=== PATIENT | male | born 1940 | race Caucasian/White ===

== ENCOUNTER 2017-01-12 01:51 | Day surgery (SDC) | payer MEDICARE ==
[~2017-01-12] VITALS: Ht 180.3 cm; Wt 70.5 kg
[2017-01-12] VITALS (14 sets, daily range): BP systolic 117–155; BP diastolic 72–118; PULSE 56–69; RESP 14–20; O2SAT 96–99
[~2017-01-12 01:51] MED LIST: ASCO100089 PO; CHOL200025 PO; MULT-1018 PO; PRIM50TA PO; PROP80CA2 PO; SILD20TA14 PO; WARF6TAB6 PO
[2017-01-12] MEDS ORDERED: Propofol 10,000 mCg/mL 20 mL Inj ONE (01:52)
[2017-01-12] MEDS ORDERED: Benzoc-Butamben-Tetraca Spray 20 Gm Spray TOPICAL ONE (06:00)
--- NOTE | 2017-01-12 06:00 | NUR ---
ADMISSION NOTE MALE PT ADMITTED FOR PACEMAKER. DISCUSSED PLAN OF CARE WITH PT AND . SEE ADMIT AND FLOW SHEET
[2017-01-12] MEDS ORDERED: CeFAZolin Inj 2 GM in IV Premix 1 EACH IV ONE (06:05)
[2017-01-12] MEDS ORDERED: 0.9% Sodium Chloride 1,000 ML IV SCH ×2 (06:05→09:28)
[2017-01-12 06:31] LABS: BASOPHILS % (AUTO) 0.9 % (0-3); EOSINOPHILS % (AUTO) 10.2 % (0-5); MONOCYTES % (AUTO) 20.1 % (4-12); NEUTROPHILS % (AUTO) 47.8 % (40-74); Platelet Count 177 bil/L (150-400)
[2017-01-12] MEDS ORDERED: WARF3TAB7 PO (06:53)
[2017-01-12 07:06] LABS: INR 2.87 ratio
[2017-01-12] MEDS ORDERED: Bupivacaine-MPF 0.5% 30 mL Inj ONE (07:33)
[2017-01-12] MEDS ORDERED: Heparin 5,000 Units/500 mL NS Premix IV ONE (07:33)
[2017-01-12] MEDS ORDERED: 0.9% Sodium Chloride 250 ML ONE ×2 (07:33→17:16)
[2017-01-12] MEDS ORDERED: fentaNYL-PF 50 mCg/mL 2 mL Inj ONE (07:59)
[2017-01-12] MEDS ORDERED: Ondansetron 2 mg/mL 2 mL Inj IVPUSH PRN (09:30)
[2017-01-12] MEDS ORDERED: HYDROcodone-APAP 5-325 mg Tablet PO PRN (09:30)
--- NOTE | 2017-01-12 10:07 | DRSVH ---
PROCEDURE: X-RAY CHEST ONE VIEW, PORTABLE ([id number]) INDICATIONS: For new leads placed TECHNIQUE: One view of the chest was acquired. COMPARISON: [facility], , CHEST 2VW, 07/18/2012, 10:35. FINDINGS: Surgical changes and devices: Dual chamber cardiac pacer present. Lungs and pleura: No pleural effusions or pneumothorax. Lungs are clear. Mediastinum: Mediastinal contours appear normal. Heart size is normal. Bones and chest wall: No suspicious bony lesions. Overlying soft tissues appear unremarkable. IMPRESSION: No immediate complications status post cardiac pacemaker placement. Dictated by: Long Boudreaux Lynette Interpreted: Nayla Rico MD on 01/12/2017 at 10:07 Transcribed by: CINDY on 01/12/2017 at 10:07 Approved by: Nayla Rico M.D. on 01/12/2017 at 17:26
--- NOTE | 2017-01-12 10:31 | OP ---
[address] [address] OPERATIVE REPORT PATIENT: ETHAN DUNCAN : 1940 MR#: [id number] ADMIT: 01/12/2017 JOB ID: [id number] DATE OF SURGERY: 01/12/2017 PREOPERATIVE DIAGNOSIS(ES): Sick sinus syndrome. POSTOPERATIVE DIAGNOSIS(ES): Sick sinus syndrome. PROCEDURES PERFORMED: 1. Dual-chamber pacemaker implantation. 2. Fluoroscopy. SURGEON: Tavon Osborne MD, electrophysiology attending. SENIOR MERCHANDISER: Marco Sharma. IMPLANTED DEVICES: 1. [employer] pulse generator model CC5741, serial #[id number]. 2. Right atrial lead [employer] [id number], 52 cm, serial #[id number]. 3. RV lead [employer] [id number], 58 cm, serial #[id number]. ANESTHESIA: Bolus dosing of Versed and fentanyl were utilized for appropriate level of sedation. INDICATION: The patient is a pleasant 76-year-old man with a structurally normal heart, sick sinus syndrome and atrial fibrillation. After discussion of risks and benefits of pacemaker implantation, he opted to proceed. PROCEDURAL DESCRIPTION: Following informed signed consent, the patient was taken to the EP laboratory in a fasting, nonsedated state, where he was prepped and draped in the usual sterile fashion. The left infraclavicular region was infiltrated with 40 cc of a 50/50 mixture of bupivacaine and lidocaine. Once adequate anesthesia had been achieved, a 3 cm transverse incision was performed 2 cm below the clavicle. Dissection was carried to the pectoralis fascia. A pocket was then fashioned using combination of electrocautery and blunt dissection. Once adequate hemostasis had been achieved, access to the left axillary vein was gotten with a micropuncture needle twice to deploy two 0.035 3-mm J guidewires. Over the first of these, an 8-Zambian tear-away sheath was advanced. Once the guidewire was removed, an active fixation lead was advanced to the RV outflow tract, ultimately the RV apex. The lead was affixed in position using associated fixation screw. It was connected to the external analyzer and demonstrated appropriately sensed R waves, impedance, capture threshold. It was checked to 10 V, and there was no evidence of diaphragmatic stimulation. Attention was now paid to the right atrial lead. Over the other previously deployed J guidewire, another 8-Zambian tear-away sheath was advanced. Once the guidewire was removed, an active fixation lead was advanced to the right atrial appendage. It was affixed in position using its associated active fixation screw. The lead was connected to the external analyzer and demonstrated appropriately sensed fibrillation waves, and no diaphragmatic stimulation at 10 V of asynchronous pacing. Impedance was stable. Once the position and redundancy of both leads was confirmed in multiple fluoroscopic views, the leads were anchored to the prepectoralis fascia using associated anchoring sleeve and 2-0 Ethibond sutures. The pocket was copiously with antibiotic solution. The leads were connected to a generator. The generator was placed in the pocket. It was affixed to the floor of the pocket using 1-0 Ti-Cron suture. The incision was then closed with running layers of absorbable suture. The wound was dressed with skin adhesive and a small dressing. At the end of the procedure, needle, sponge and instrument counts were all correct. COMPLICATIONS: None. ESTIMATED BLOOD LOSS: Negligible. DEVICE MEASURED DATA: 1. Right atrial lead: 0.7 mV, AFib waves, 490 ohms. 2. RV lead: Greater than 12 mV, 600 ohms, 0.5 V at 0.4 msec. FINAL PROGRAM PARAMETERS: DDDR 55-130 beats per minute with mode switched to DDI at 50 beats per minute. IMPRESSION: Successful dual-chamber pacemaker implantation. PLAN: 1. Stat portable chest x-ray. 2. PA and lateral chest x-ray in morning. 3. Device interrogation in the morning. 4. IV Ancef through tomorrow. 5. Keflex x7 days. 6. Pacemaker check in one week. 7. Cardioversion with preceding ARSEN, given subtherapeutic INR within the past three weeks. ATTENDING STATEMENT: Tavon Osborne MD, electrophysiology attending, was present for and supervised/performed all aspects of this procedure.
--- NOTE | 2017-01-12 11:30 | NUR ---
TRANSFERED TO [facility] [place]. REPORT GIVEN
--- NOTE | 2017-01-12 13:37 | NUR ---
Arrival to [facility] Pt arrived to 3029 just after 12 noon. Transferred to bed independently. L arm sling applied by [facility] staff. L chest dressing CDI. Tele monitor placed on pt. Pt ate lunch. Currently resting comfortably in bed, voices no complaints.
[2017-01-12] MEDS ORDERED: CeFAZolin Inj 1 GM in IV Premix 1 EACH IV SCH (16:30)
[2017-01-12] MEDS: CeFAZolin Inj 1 GM in IV Premix 1 EACH IV SCH (17:30)
[2017-01-12] MEDS: Sodium Chloride LOK Flush 10 mL Syringe IVFLUSH SCH (17:30)
--- NOTE | 2017-01-12 18:25 | NUR ---
Ambulation Pt. ambulated in the hallway x1. He walked 400 feet. NO C/O SOB, dizziness, or weakness during activity. L. chest dressing clean and dry, with one small old blood shadow (unchanged). Arm sling was used to support L. arm and to protect pacemaker site.
[2017-01-13] VITALS (13 sets, daily range): BP systolic 103–165; BP diastolic 68–93; PULSE 55–83; RESP 12–19; O2SAT 98–99
[2017-01-13] MEDS: Sodium Chloride LOK Flush 10 mL Syringe IVFLUSH SCH ×2 (00:42→09:39)
[2017-01-13] MEDS: CeFAZolin Inj 1 GM in IV Premix 1 EACH IV SCH (00:43)
--- NOTE | 2017-01-13 05:12 | NUR ---
Activity Pt up independent in room. Pt has left arm sling in place. Pt's dressing to left upper chest is intact with small amount of dried blood, no change. Pt is NPO after midnight. Call light within reach, frequent rounding.
--- NOTE | 2017-01-13 09:21 | NUR ---
Social Work-initial assessment/ discharge: Data:See initial assessment. P tis a 76 y/o male who was admitted for tachy per H&P. Pt's insurance is [employer] and PCP is Ezio Cox MD. EMR reviewed. SW met with pt at bedside to discuss discharge planning, SW role explained. Pt is alert and oriented x3. Pt resides at home with his on [address] where he remains independent with ADLs. Pt drives and does not use any DME. Pt has no HH or SNF history. 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 SW discussed DPOA/ advanced directive, pt confirms he has completed this, SW encouraged a copy to be brought into the hospital. Pt has been up independent in the hallways. Pt's to provide transport home at discharge. Pt anticipated to discharge home today. SW provided phone number and plan on white board in room. No anticipated discharge needs. SW will continue to follow if needs arise. Assessment:Pt who is independent at baseline. Plan:Pt to discharge home today via POV. No anticipated discharge needs. SW will continue to follow if needs arise. KINGS Gaffney Addendum: 01/13/17 at 0925 by ALIS WALTERS Amended: Links added.
[2017-01-13] MEDS: Propranolol LA 80 mg ER24 Capsule PO SCH ×2 (09:50→10:37)
--- NOTE | 2017-01-13 11:00 | DRSVH ---
PROCEDURE: X-RAY CHEST, TWO VIEWS ([id number]) INDICATIONS: For new lead placement TECHNIQUE: 2 views of the chest were acquired. COMPARISON: [facility], CR, XR CHEST 1VW (PORTABLE), 01/12/2017, 9:40. [facility], CR, CHEST 2VW, 07/18/2012, 10:35. FINDINGS: Surgical changes and devices: Stable positioning of dual chamber left cardiac pacemaker. Lungs and pleura: No pleural effusions or pneumothorax. Lungs are clear. Mediastinum: Mediastinal contours are normal. Heart size is normal. Bones and chest wall: No suspicious bony abnormalities. Soft tissues appear unremarkable. IMPRESSION: Stable chest post pacer placement. Dictated by: Long Boudreaux RRA Interpreted: Betsy Franklin MD on 01/13/2017 at 10:59 Transcribed by: GUADALUPE on 01/13/2017 at 11:00 Approved by: Betsy Franklin MD, PhD on 01/13/2017 at 17:02
[2017-01-13 11:23] LABS: INR 2.85 ratio
[2017-01-13] MEDS ORDERED: Lactated Ringer's 1,000 ML IV ONE (11:44)
--- NOTE | 2017-01-13 11:56 | NUR ---
Off Unit: Patient transported via wheelchair to [facility] @ 1130 accompanied by GAGE and FRANKO. audiology technician notified. No apparent distress noted at time of transport. Addendum: 01/13/17 at 1222 by SANTOS ELIZABETH RN Unable to perform q4hr IV and pain assessment as patient continues to be off unit.
--- NOTE | 2017-01-13 12:19 | PCM.HPANE ---
Patient Data Surgeon Admitting Provider: Attending Provider:Tavon Osborne MD Primary Care Physician:Jeremy Chan MD Other Provider: Reason for Visit Tachycardia-Bradycardia Syndome Ht/WT & BMI Height (Feet): 5 Height (Inches): 11.00 Weight (Kilograms): 70.500 Body Mass Index 21.76 Allergies Coded Allergies: No Known Allergies (Verified Allergy, Unknown, 01/12/17) Past Anesthesia History Anesthesia History: Denies:: Anesthesia Reactions Diabetes History Hx Diabetes?: No MRSA MRSA: No Medications Reported Medications Warfarin Sodium 3 Mg [id number] Mg PO DAILY 30 Days Ref 0 01/12/17 Propranolol ER 80 Mg Cap.sa.24h80 Mg PO DAILY 01/11/17 Primidone 50 Mg Trojoj22 Mg PO DAILY 30 Days 01/14/16 Cholecalciferol (Vitamin D3) (Vitamin D3)2,000 Unit Tablet2,000 Unit PO DAILY 08/08/15 Ascorbic Acid (Vitamin C)1,000 Mg Tab.chew2,000 Mg PO DAILY Ref 0 08/08/15 Multivitamin (Multi Vitamin Daily)1 Each Tablet1 Each PO DAILY 30 Days Ref 0 08/08/15 Discontinued Reported Medications Warfarin Sodium 6 Mg Krkssb44 Mg PO MON,WEDNS,FRI,SAT 30 Days 05/18/16 Flecainide Acetate 50 Mg Nvqnbx05 Mg PO BID 30 Days 05/18/16 Discontinued Scripts Atorvastatin (Lipitor)20 Mg Kkwjcj55 Mg PO DAILY #30 TABLET Ref 0 Prov:Liza Noble MD 08/09/15 History History of ENT Problems?: Yes HEENT History: Positive for:: Cataracts (Cararact surgery both eyes) Hx of Heart Problems?: Yes Cardiovascular History: Positive for:: Irregular Heartbeat (SVT ablation, a.fib) Denies:: Cardiac Surgery Chest Pain Congestive Heart Failure Edema Heart Murmur Hypertension Other Cardiac History: HERE FOR PACEMAKER TODAY 01/12/17 Hx of Respiratory Problem?: Yes Respiratory History: Positive for:: Pneumonia (50 years ago) Hx Neurologic Problems?: Yes Neurological History: Positive for:: CVA (NO RESIDUAL, AUGUST 2015) Denies:: Parkinson's Disease Hx of GI Problems?: Yes Hx of Problems?: No Male Hx: Denies:: Prostate Problems Scrotal Mass Testicular Surgery Hx of Psycho/Social Problems?: No Hx Surgeries?: Yes (Cararact surgery both eyes) Hx Any Other Health Problems?: Yes Other History: Positive for:: Hospitalization (50years ago for pneumonia) Denies:: Cancer Thyroid Disease History Blood Transfusions: Positive for:: Accept Blood Products? Denies:: Blood Transfuse Reaction Blood Transfusions Hx Diabetes: No Hx Alcohol Use: Yes (2-3 glasses wine daily)Hx Substance Use: No Smoking Status: Former Smoker Have You Smoked inLast 12 mo: No Stop/Bang LANIE Risk Assessment: Low Risk, <3 Yes Risk Assessment Category Category 1A: Patient has history of documented sleep apnea, and HAS NOT received any narcotic, sedative or anesthesia administration during this stay. Category 1B: Patient has history of documented sleep apnea, and HAS received any narcotic , sedative or anesthesia administration during this stay Category 2: Patient has SUSPECTED Obstructive Sleep Apnea, and HAS received any narcotic , sedative or anesthesia administration during this stay. Category 3: Patient has SUSPECTED Obstructive Sleep Apnea and HAS NOT received narcotic, sedative or anesthesia administration during this stay. Category 4: Outpatient in Procedural Areas with known sleep apnea or who screen positive for High Risk via the STOP/BANG questionnaire. Exam Exam Vital Signs Vital Signs Date Time Temp Pulse Resp B/P Pulse Ox O2 Delivery O2 Flow Rate FiO2 01/13/17 11:48 67 13 165/84 99 Room Air 01/13/17 10:43 65 01/13/17 09:43 36.5 69 18 152/93 98 Room Air 01/13/17 05:09 36.4 66 18 137/89 99 Room Air General Appearance: Oriented X3 HEENT/AIRWAY: MP 2 Lungs: Normal Air Movement Heart: Regular Rate/Rhythm Meds/Labs/Diagnostics Admission Meds Current Medications Propafenone HCl (Rythmol) 150 mg Q8 PO Last administered on 01/13/17 09:37; Start 01/12/17 at 16:30 Sodium Chloride 10 ml 10 ml LUPE IVFLUSH Last administered on 01/13/17 09:39; Start 01/12/17 at 16:30 Cefazolin Sodium/ Dextrose 1 gm/ Premix 50 ml @ 100 mls/hr Q8H IV Last administered on 01/13/17 00:43; Start 01/12/17 at 17:00; Stop 01/13/17 at 01:29 ; Status DC Sodium Chloride (Normal Saline) 250 ml @ STK-MED ONCE .ROUTE Last administered on 01/12/17 17:31; Start 01/12/17 at 17:16; Stop 01/12/17 at 17:17 ; Status DC Propranolol HCl (Inderal LA) 80 mg DAILY PO Last administered on 01/13/17 10: 37; Start 01/13/17 at 09:45 Labs Test 01/12/17 06:20 01/13/17 10:55 White Blood Count 4.3th/mm3 (3.8-10.1) Red Blood Count 4.27mil/mm3 (4.40-5.80) Hemoglobin 14.1g/dL (13.8-17.2) Hematocrit 41.4% (41.0-50.0) Mean Corpuscular Volume 97.0fL (81-100) Mean Corpuscular Hemoglobin 33.0pg (27.0-35.0) Mean Corpuscular Hemoglobin Concent 34.1% (32.0-37.0) Red Cell Distribution Width 14.4% (12.3-15.4) Platelet Count 177bil/L (150-400) Neutrophils (%) (Auto) 47.8% (40-74) Lymphocytes (%) (Auto) 20.8% (14-46) Monocytes (%) (Auto) 20.1% (4-12) Eosinophils (%) (Auto) 10.2% (0-5) Basophils (%) (Auto) 0.9% (0-3) Sodium Level 143mEq/L (134-144) Potassium Level 4.5mEq/L (3.5-5.2) Chloride Level 104mEq/L (97-108) Carbon Dioxide Level 25mmol/L (18-29) Blood Urea Nitrogen 22mg/dL (8-27) Creatinine 0.76mg/dL (0.76-1.27) Estimat Glomerular Filtration Rate 105mL/min (>59) Glucose Level 95mg/dL (60-99) Calcium Level 8.8mg/dL (8.5-10.1) Prothrombin Time 31.2sec (8.1-12.5) Prothromb Time International Ratio 2.85ratio Plan Impression Patient chart reviewed, patient interviewed and anesthestic plan with risks, benefits, and alternatives discussed, and informed consent obtained. ASA Physical Status: ASA2 Mod Systemic Disease Anesthetic Plan: GA Bene/Risks/Altern/Consents: Yes HP Complete Prior to Induction: Yes Eladio Raphael MD Jan 13, 2017 12:19
--- NOTE | 2017-01-13 13:03 | NUR ---
ARSEN/Cardioversion/Recovery Pt. arrived about 1130 and checked in by Zahraa Cervantes RN. Assumed care just prior to ARSEN. Anesthesia in and consented pt. Numbing commenced about [address] Davey's order. Procedure commenced and care assumed by Anesthesia about 1235, see their flowsheet. ARSEN finished about 1240. Cardioverted by Dr. Osborne at 1245 with 200J x1 and Pacer interrogated by rep. States Sinus/atrial paced. HR 55. Pt. very sleepy but VSS. Weaning O2. Continue to monitor.
--- NOTE | 2017-01-13 13:06 | PCM.DIMED ---
Discharge Instructions Date of Service Jan 13, 2017 Dates of Hospitalization Discharge Diagnosis Discharge Diagnosis Persistent Atrial Fibrillation Tachy / Binh Syndrome Diet Heart Healthy Activity Other (Keep incision dry one day. Do not extend left elbow high above shoulder for one month. Do not lift, push or pull more than 10 lbs with the left arm for one month.) Patient Instructions Follow-up in: 1 week Mid-level Provider (F9): Eloy Rodriguez PA-C Follow-up with Mid-level in: 6 weeks Eloy Rodriguez PA-C Jan 13, 2017 13:06
[2017-01-13] MEDS ORDERED: CEPH500C PO (13:13)
[2017-01-13] MEDS ORDERED: PROP225C6 PO (13:19)
--- NOTE | 2017-01-13 13:38 | PROCED ---
[address] [address] PROCEDURE NOTE PATIENT: ETHAN DUNCAN : 1940 MR#: [id number] ADMIT: 01/12/2017 JOB ID: [id number] DATE OF SERVICE: 01/13/2017 PREOPERATIVE DIAGNOSIS(ES): Atrial fibrillation. POSTOPERATIVE DIAGNOSIS(ES): Sinus rhythm. PROCEDURE PERFORMED: Direct current cardioversion. SURGEON: Tavon Osborne MD, electrophysiology attending. SEDATION: Monitored anesthesia care was provided by the anesthesiology service. INDICATION: The patient is a pleasant 76-year-old man with sick sinus syndrome who underwent pacemaker implant yesterday. He also has atrial fibrillation, and after discussion of the risks and benefits of cardioversion and after confirmation of lack of intracardiac thrombus by ARSEN, he opted to proceed. PROCEDURAL DESCRIPTION: After informed signed consent, the patient was taken to the EP laboratory in a fasting nonsedated state. After adequate sedation with propofol, a 200 joule biphasic synchronized shock was used to convert him to sinus rhythm. His pacemaker was interrogated postprocedurally and showed excellent lead parameters on the atrial and ventricular leads. He will be allowed to discharge home after close followup. COMPLICATIONS: None. ESTIMATED BLOOD LOSS: None. IMPRESSION: Successful direct cardioversion. PLAN: 1. Continue current medication regimen including propafenone, propranolol and anticoagulation. 2. Pacemaker check in one week. 3. Followup with Eloy Rodriguez in six weeks. ATTENDING STATEMENT: Tavon Osborne MD, electrophysiology attending was present for and supervised/performed all aspects of this procedure.
--- NOTE | 2017-01-13 13:43 | PCM.ANEP1 ---
Post Anesthesia Phase 1 PACU Phase 1 Assessment Vital Signs Vital Signs Date Time Temp Pulse Resp B/P Pulse Ox O2 Delivery O2 Flow Rate FiO2 01/13/17 13:15 56 15 116/79 99 Room Air 01/13/17 13:10 55 12 117/82 99 Nasal Cannula 1.00 01/13/17 13:05 55 13 115/72 99 Nasal Cannula 3.00 01/13/17 13:00 55 14 104/70 99 Nasal Cannula 3.00 01/13/17 12:55 55 15 113/68 99 Nasal Cannula 5.00 01/13/17 12:50 60 14 103/73 99 Nasal Cannula 5.00 01/13/17 12:45 81 17 01/13/17 12:45 81 17 116/70 99 Nasal Cannula 5.00 01/13/17 12:40 83 19 138/79 01/13/17 11:48 67 13 165/84 99 Room Air 01/13/17 10:43 65 01/13/17 09:43 36.5 69 18 152/93 98 Room Air Anesthetic Administered: GA Level of Alertness: Awake, talking Pain: No Nausea or Vomiting: No Oxygen Delivery: Room Air Lungs: Normal Air Movement Eladio Raphael MD Jan 13, 2017 13:43
--- NOTE | 2017-01-13 13:44 | PCM.ANEP2 ---
Post Anesthesia Evaluation ASA/CMS Post Anesthesia VS in Patient's Normal Range?: Yes Resp Stable; Airway Patent?: Yes CV Function & Hydration Stable: Yes Mental Status Recovered?: Yes Pain control Satisfactory?: Yes N/V Control Satisfactory?: Yes Eladio Raphael MD Jan 13, 2017 13:44
--- NOTE | 2017-01-13 13:48 | DIS ---
[address] [address] DISCHARGE SUMMARY PATIENT: ETHAN DUNCAN : 1940 MR#: [id number] ADMIT: 01/12/2017 JOB ID: [id number] DIS: REASON FOR ADMISSION: Pacemaker implant. CHIEF COMPLAINT: Exertional dyspnea and fatigue. 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 He also has had atrial fibrillation and is now persistent in atrial fibrillation. He was previously converted to sinus rhythm on flecainide and was very fatigued and had marked sinus bradycardia. He also reported significant weight gain with fluid in his legs while on flecainide, and this cleared when flecainide was stopped. He evidently requires antiarrhythmic medication to keep him in sinus rhythm, and he will also require a pacemaker, so that he will be symptomatically bradycardic. COURSE IN HOSPITAL: The patient was admitted through the [facility] and taken to the catheterization laboratory, where he received the dual-chamber pacemaker without incident. He was transferred back to the [facility] for recovery from sedation and then taken up to the third floor [facility] for overnight observation and telemetry. He was also started on propafenone 150 mg q.8 h., and cardioversion was planned for the day after pacemaker implant. He was anticoagulated with warfarin 15 mg daily but a couple of weeks ago his INR was well below 2.0. The day after pacemaker implant the patient was taken back down to the [facility], where he first had a ARSEN, which ruled out left atrial thrombus and then, he had a cardioversion to sinus rhythm. The pacemaker was evaluated after the conversion, and he had good atrial and ventricular capture and sensing thresholds. Chest x-ray showed good lead positions and no pneumothorax. The device site shows local ecchymosis but no hematoma and no bleeding. DISPOSITION: The patient was discharged home in good condition with a followup appointment at the [facility] Cardiology office in one week. He was asked not to extend his left elbow above his shoulder for one month and not to lift, push, or pull more than 10 pounds with the left arm for one month. He will take medications as prescribed and follow his heart healthy diet. After the cardioversion, he felt well and was eager to have lunch and then go home. DISCHARGE MEDICATIONS: 1. Cephalexin 500 mg b.i.d. 2. Propafenone ER 225 mg b.i.d. 3. Vitamin C 2000 mg daily. 4. Vitamin D3, 2000 units daily. 5. Multivitamin 1 daily. 6. Primidone 50 mg daily. 7. Propranolol ER 80 mg daily. 8. Warfarin 15 mg daily or as directed by his anticoagulation clinic. FINAL DIAGNOSES: 1. Persistent atrial fibrillation. 2. Tachycardia bradycardia syndrome. 3. Dual-chamber cardiac pacemaker implanted on January 12, 2017. 4. Cardioversion to sinus rhythm on January 13, 2017.
--- NOTE | 2017-01-13 13:48 | NUR ---
Transfer Back to baseline by 1310 and anxious to go back to his room. Report called to Vicky Wyman RN. Transported to 2028 via w/c in no distress at 1325.
--- NOTE | 2017-01-13 14:25 | NUR ---
Discharge: Patient discharged to home @ approx 1415. IV x2 d/c'd intact, telemetry removed, radiation monitor notified. Personal belongings sent with patient. Reviewed two new prescriptions, home medication list, d/c instructions and follow up appointments. Also, reviewed activity restriction regarding left arm post pacemaker instructions. Verbalized understanding. Escorted to main entrance via wheelchair accompanied by this RN.
--- NOTE | 2017-01-14 10:58 | DRSVH ---
[facility] [address] [place] [address] Echocardiogram Report Name: GERALDO DUNCAN Study Date: 01/13/2017 Height: 71 in Hospital Exam Location: [facility] Weight: 155 lb Gender: Male BSA: 1.9 m2 : 1940 Age: 76 yrs BP: 165/84 mmHg Reason For Study: Atrial fibrillation Ordering Physician: Eloy RodriguezPerformed By: Yancy Gonzalez Referring Physician: Dang Chan Interpretation Summary The left ventricular ejection fraction is grossly normal. No thrombus is detected in the left atrial appendage. There is a pacemaker lead seen in the right atrium There is mild mitral regurgitation. There is a trace or physiologic amount of tricuspid regurgitation. Procedure: Informed consent for Transesophageal Echocardiogram, and use of a contrast agent as needed, was obtained prior to the procedure. The patient was brought to the [facility] in a fasting state. An intravenous line was placed. A topical anesthetic agent was used for oropharangeal anesthesia. A bite block was inserted. Sedation was managed by anesthesiologist; see anesthesiology notes for details. A multifrequency, multiplane transesopheageal echocardiographic endoscope was inserted and manipulated in the standard fashion to achieve multiplane views. The transesophageal probe was passed without difficulty. A 2D transesophageal echocardiogram with spectral and color flow Doppler was performed. The patient's vital signs, including blood pressure, heart rate, pulse oximetry and cardiac rhythm were monitored throughout the procedure and remained stable. The patient tolerated the procedure well without evidence of orophangeal or esophageal trauma. There were no complications. Left Ventricle: The left ventricular ejection fraction is grossly normal. Atria: No thrombus is detected in the left atrial appendage. There is a pacemaker lead seen in the right atrium. There is no Doppler evidence for an interatrial shunt. Mitral Valve: The mitral valve is normal in structure and function. There is mild mitral regurgitation. Aortic Valve: The aortic valve is grossly normal. Tricuspid Valve: There is a trace or physiologic amount of tricuspid regurgitation. Pulmonic Valve: The pulmonic valve is not well seen, but is grossly normal. Electronically signed by: Michael Davey on Reading Physician:01/14/2017 10:57 AM
[2017-01-27] MEDS ORDERED: [UNRECOGNIZED DRUG - CODE] UR (17:44)
[2017-03-30] MEDS ORDERED: PROP80CA2 PO (15:21)
[2017-03-30] MEDS ORDERED: BETA15OI2 TOP (15:21)
[2017-03-30] MEDS ORDERED: WARF3TAB7 PO (15:21)
== END 2017-01-13 14:10 | disposition home or self-care (01) ==
LOC: SOUO 01:51 → MPC 12:31 → SOUO 23:59
PROVIDERS: ATTEND Internal Medicine Cardiovascular Disease
DX: I49.5 Sick sinus syndrome (principal); I48.1 Persistent atrial fibrillation; Z79.01 Long term (current) use of anticoagulants
CPT/HCPCS: 33208; 36415; 71010; 71020; 80048; 85025; 85610; 92960; 93005; 99152; 99153; C1769; C1785; C1892; C1898; C8925; J0690; J1644; J3010; J7050; J7120

== ENCOUNTER 2017-01-28 00:14 | Day surgery (SDC) | payer MEDICARE ==
[~2017-01-28 00:14] MED LIST changes: +PROP225C6 PO; -PROP80CA2 PO; -SILD20TA14 PO; +WARF3TAB7 PO; -WARF6TAB6 PO; +[UNRECOGNIZED DRUG - CODE] UR
--- NOTE | 2017-01-28 15:35 | NUR ---
[facility] PT WAS TO HAVE CV TODAY BUT HE HASN'T BEEN TAKING HIS PROPAFENONE DIRECTED. DR ALEMAN WAS NOTIFED AND PROCEDURE CANCELED. PT TO DECIDE IF HE WANTS TO DO THE SOTOLAL LOADING. HE WILL LET DR ALEMAN KNOW. IN THE MEANTIME HE IS TO DISCONTINUE HIS PROFAFENONE AND KEEP OTHER MEDICATIONS THE SAME. HE WAS DISCHARGED WITH AT 1510.
[2017-03-30] MEDS ORDERED: WARF3TAB7 PO (15:21)
[2017-03-30] MEDS ORDERED: PROP80CA2 PO (15:21)
[2017-03-30] MEDS ORDERED: BETA15OI2 TOP (15:21)
== END 2017-01-28 23:59 | disposition home or self-care (01) ==
LOC: SOUO 00:14
PROVIDERS: ATTEND Internal Medicine Cardiovascular Disease
DX: I48.0 Paroxysmal atrial fibrillation (principal)

== ENCOUNTER 2017-03-31 00:37 | Day surgery (SDC) | payer MEDICARE ==
[~2017-03-31] VITALS: Ht 180.3 cm; Wt 71.2 kg
[~2017-03-31 00:37] MED LIST changes: +BETA15OI2 TOP; -PROP225C6 PO; +PROP80CA2 PO; -[UNRECOGNIZED DRUG - CODE] UR
[2017-03-31] MEDS ORDERED: Phenylephrine/NS 100 mCg/mL 10 mL Syringe IVPUSH ONE (00:38)
[2017-03-31] MEDS ORDERED: Glycopyrrolate 0.2 MG/ML 1mL Inj ONE (00:38)
[2017-03-31] MEDS ORDERED: Propofol 10,000 mCg/mL 20 mL Inj ONE (00:38)
[2017-03-31] MEDS ORDERED: fentaNYL-PF 50 mCg/mL 2 mL Inj ONE (00:38)
[2017-03-31] MEDS ORDERED: Ondansetron 2 mg/mL 2 mL Inj ONE (00:38)
[2017-03-31] MEDS ORDERED: Dexamethasone 4 mg/mL Inj ONE (00:38)
[2017-03-31] MEDS ORDERED: Neostigmine 1 mg/mL 10 mL Inj ONE (00:38)
[2017-03-31] MEDS ORDERED: Rocuronium 10 mg/mL 5 mL Inj ONE (00:38)
[2017-03-31] MEDS ORDERED: Lactated Ringer's 1,000 ML IV SCH ×2 (05:00→09:11)
[2017-03-31 06:26] LABS: BASOPHILS % (AUTO) 1.1 % (0-3); EOSINOPHILS % (AUTO) 11.7 % (0-5); Mean Corpuscular Hemoglobin 33.3 pg (27.0-35.0); Platelet Count 171 bil/L (150-400)
[2017-03-31 06:31] VITALS: BP 115/71; PULSE 59; RESP 10; O2SAT 99
--- NOTE | 2017-03-31 06:43 | NUR ---
Patient admitted for atrial fibrillation ablation with Dr Osborne.He is accompanied by his .
[2017-03-31 06:54] LABS: INR 1.55 ratio
[2017-03-31] MEDS ORDERED: Vancomycin 1,000 mg/200 mL NS IV SCH (07:05)
[2017-03-31] MEDS ORDERED: Benzoc-Butamben-Tetraca Spray 20 Gm Spray TOPICAL PRN (07:15)
[2017-03-31] MEDS ORDERED: Heparin 1,000 Unit/mL 10 mL Inj ONE (07:58)
[2017-03-31] MEDS ORDERED: 0.9% Sodium Chloride 3,000 ML ONE (07:58)
[2017-03-31] MEDS ORDERED: Heparin 1,000 Units/500 mL NS Premix IV ONE (07:58)
[2017-03-31] MEDS ORDERED: Heparin 10,000 Unit/1,000 mL NS Premix IV ONE (07:58)
[2017-03-31] MEDS ORDERED: Heparin 25,000 Unit/500 mL 0.45% NS Premix IV ONE (07:58)
[2017-03-31] MEDS ORDERED: 0.9% Sodium Chloride 2,000 ML ONE (08:15)
[2017-03-31] MEDS ORDERED: Lactated Ringer's 500 ML IV PRN (09:11)
--- NOTE | 2017-03-31 09:11 | PCM.HPANE ---
Patient Data Surgeon Admitting Provider: Attending Provider:Tavon Osborne MD Primary Care Physician:Jeremy Chan MD Other Provider:Catalina Culpingham Anesthesia Reason for Visit Persistent Atrial Fibrillation Ht/WT & BMI Height (Feet): 5 Height (Inches): 11.00 Weight (Kilograms): 71.200 Body Mass Index 21.98 Allergies Coded Allergies: flecainide (Verified Allergy, Intermediate, 03/31/17) Past Anesthesia History Anesthesia History: Denies:: Abnormal Airway, Anesthesia Reactions, Difficult Intubation, Fam Anesthesia Reaction, Fam Malignant Hypertherm, Malignant Hyperthermia Diabetes History Hx Diabetes?: No MRSA MRSA: No Medications Blood Thinner: Coumadin Hypertension Medication: Yes Home Meds Incl Beta Candice: Yes Previous Beta Candice Dose >24: Previous Dose <24 Hours Reported Medications Betamethasone Valerate (Betamethasone Valerate 0.1% Ointment)15 Gm Oint...g.1 Appl TOP BID/PRN #1 TUBE Ref 0 03/30/17 Propranolol ER 80 Mg Cap.sa.24h80 Mg PO DAILY 03/30/17 Warfarin Sodium 3 Mg [id number] Mg PO On 30 Days Ref 0 01/12/17 Primidone 50 Mg [id number] Mg PO DAILY 30 Days 01/14/16 Cholecalciferol (Vitamin D3) (Vitamin D3)2,000 Unit Tablet2,000 Unit PO DAILY 08/08/15 Ascorbic Acid (Vitamin C)1,000 Mg Tab.chew2,000 Mg PO DAILY Ref 0 08/08/15 Multivitamin (Multi Vitamin Daily)1 Each Tablet1 Each PO DAILY 30 Days Ref 0 08/08/15 Discontinued Reported Medications Warfarin Sodium 3 Mg [id number] Mg PO DAILY 30 Days Ref 0 Except 03/30/17 Alprostadil ([place])500 Mcg Supp. Mcg UR 01/27/17 Discontinued Scripts Propafenone ER 225 Mg Cap.er.79p045 Mg PO BID #60 CAPSULE Ref 6 Prov:Eloy Rodriguez PA-C 01/13/17 History History of ENT Problems?: Yes HEENT History: Positive for:: Cataracts (Cararact surgery both eyes) Denies:: Abnormal Airway Difficult Intubation Dysphagia Glaucoma Hearing Problem Sinus Problem TMJ Denture Type: None Teeth Condition: Within Normal Limits Hx of Heart Problems?: Yes Cardiovascular History: Positive for:: Atrial Fibrillation Cardiac Surgery (pacemaker implant 01/15) Irregular Heartbeat (SVT ablation, a.fib) Denies:: Chest Pain Congestive Heart Failure Edema Heart Murmur Hypertension Other Cardiac History: > 4METS, normal LV function by recent ARSEN Hx of Respiratory Problem?: Yes Respiratory History: Positive for:: Pneumonia (50 years ago) Hx Neurologic Problems?: Yes Neurological History: Positive for:: 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 Denies:: Blood Transfuse Reaction Blood Transfusions Hx Diabetes: No Hx Alcohol Use: Yes (2-3 glasses wine daily)Hx Substance Use: No Smoking Status: Former Smoker Have You Smoked inLast 12 mo: No Stop/Bang P-Blood Pressure: treated: Yes A- Age over 50: Yes G- Gender Male: Yes LANIE Risk Assessment: High Risk, =/>3 Yes Risk Assessment Category Category 1A: Patient has history of documented sleep apnea, and HAS NOT received any narcotic, sedative or anesthesia administration during this stay. Category 1B: Patient has history of documented sleep apnea, and HAS received any narcotic , sedative or anesthesia administration during this stay Category 2: Patient has SUSPECTED Obstructive Sleep Apnea, and HAS received any narcotic , sedative or anesthesia administration during this stay. Category 3: Patient has SUSPECTED Obstructive Sleep Apnea and HAS NOT received narcotic, sedative or anesthesia administration during this stay. Category 4: Outpatient in Procedural Areas with known sleep apnea or who screen positive for High Risk via the STOP/BANG questionnaire. Exam Exam Vital Signs Vital Signs Date Time Temp Pulse Resp B/P Pulse Ox O2 Delivery O2 Flow Rate FiO2 03/31/17 06:31 36.6 59 10 115/71 99 Room Air General Appearance: Alert, Oriented X3, Cooperative, No Acute Distress HEENT/AIRWAY: MP 2 Lungs: Clear to Auscultation, Normal Air Movement Heart: Normal S1, Normal S2, No Murmurs/Rubs/Gallops, Other (irregularly irregular) Meds/Labs/Diagnostics Labs Test 03/31/17 06:10 White Blood Count 5.3th/mm3 (3.8-10.1) Red Blood Count 3.90mil/mm3 (4.40-5.80) Hemoglobin 13.0g/dL (13.8-17.2) Hematocrit 38.6% (41.0-50.0) Mean Corpuscular Volume 99.0fL (81-100) Mean Corpuscular Hemoglobin 33.3pg (27.0-35.0) Mean Corpuscular Hemoglobin Concent 33.7% (32.0-37.0) Red Cell Distribution Width 14.6% (12.3-15.4) Platelet Count 171bil/L (150-400) Neutrophils (%) (Auto) 48.0% (40-74) Lymphocytes (%) (Auto) 16.6% (14-46) Monocytes (%) (Auto) 22.0% (4-12) Eosinophils (%) (Auto) 11.7% (0-5) Basophils (%) (Auto) 1.1% (0-3) Prothrombin Time 16.7sec (8.1-12.5) Prothromb Time International Ratio 1.55ratio Sodium Level 141mEq/L (134-144) Potassium Level 5.3mEq/L (3.5-5.2) Chloride Level 103mEq/L (97-108) Carbon Dioxide Level 28mmol/L (18-29) Blood Urea Nitrogen 24mg/dL (8-27) Creatinine 0.81mg/dL (0.76-1.27) Estimat Glomerular Filtration Rate 98mL/min (>59) Glucose Level 89mg/dL (60-99) Calcium Level 9.3mg/dL (8.5-10.1) Plan Impression Patient chart reviewed, patient interviewed and anesthestic plan with risks, benefits, and alternatives discussed, and informed consent obtained. NPO per Anesth. Guidelines: Yes ASA Physical Status: ASA3 Severe Disease Anesthetic Support Modalities: Arterial Line Anesthetic Plan: GA Bene/Risks/Altern/Consents: Yes HP Complete Prior to Induction: Yes Other GETA ARSEN per buffer machine Kyle Alvarez MD March 31, 2017 07:29
[2017-03-31] MEDS ORDERED: Phenylephrine 10,000 mCg/mL Inj IVPUSH PRN (09:15)
[2017-03-31] MEDS ORDERED: Atropine 0.4 mg/mL Inj IVPUSH PRN (09:15)
[2017-03-31] MEDS ORDERED: fentaNYL-PF 50 mCg/mL 2 mL Inj IVPUSH PRN (09:15)
[2017-03-31] MEDS ORDERED: Ondansetron 2 mg/mL 2 mL Inj IVPUSH PRN (09:15)
[2017-03-31] MEDS ORDERED: EPHEDrine Sulfate 50 mg/mL Inj IVPUSH PRN (09:15)
[2017-03-31] MEDS ORDERED: Labetalol 5 mg/mL 4 mL Inj IV PRN (09:15)
[2017-03-31] MEDS ORDERED: MetoCLOpramide 5 mg/mL 2 mL Inj IVPUSH PRN (09:15)
[2017-03-31] MEDS ORDERED: HYDROmorphone 1 mg/mL Inj IVPUSH PRN (09:15)
[2017-03-31 10:30] VITALS: BP 136/69; PULSE 76; RESP 16; O2SAT 94
[2017-03-31 10:35] VITALS: BP 139/66; PULSE 66; RESP 14; O2SAT 94
[2017-03-31 10:40] VITALS: BP 129/69; PULSE 66; RESP 14; O2SAT 99
--- NOTE | 2017-03-31 10:45 | PCM.ANEP1 ---
Post Anesthesia PACU Phase 1 Assessment Vital Signs VSS, please recovery nurse notes for VS. Vital Signs Date Time Temp Pulse Resp B/P Pulse Ox O2 Delivery O2 Flow Rate FiO2 03/31/17 06:31 36.6 59 10 115/71 99 Room Air Anesthetic Administered: GA Level of Alertness: Awake, talking AKINS's with Equal Strength: Yes Pain: No Nausea or Vomiting: No CV Function & Hydration Stable: Yes Airway Device: Endotrachial Tube (atraumatic intubation) Oxygen Delivery: Simple Mask Lungs: Clear to Auscultation, Normal Air Movement Summary Afbi ablation cancelled secondary to gastric ulcer noted on EGD. EGD performed secondary to difficulty in passing ARSEN probe by database management system specialist. PACU Phase 2 Assessment Complications: No Follow up Care: N/A Patient Instructions Provided: Yes (per adult services librarian and database management system specialist) Kyle Alvarez MD March 31, 2017 10:45
[2017-03-31 10:46] VITALS: BP 132/88; PULSE 64; RESP 15; O2SAT 100
[2017-03-31 11:00] VITALS: BP 126/110; PULSE 58; RESP 13; O2SAT 100
[2017-03-31] MEDS ORDERED: Pantoprazole 4 mg/mL 10 mL Inj IVPUSH ONE (11:25)
--- NOTE | 2017-04-01 18:06 | DRSVH ---
[facility] [address] [place] [address] Echocardiogram Report Name: GERALDO DUNCAN Study Date: 03/31/2017 Height: 72 in Hospital Exam Location: [facility] Weight: 178 lb Gender: Male BSA: 2.0 m2 : 1940 Age: 77 yrs Reason For Study: PERSISTENT ATRIAL FIBRILLATION Ordering Physician: Performed By: Rajinder Proctor Interpretation Summary 1. Grossly normal left ventricular size and systolic function. 2. No evidence for thrombus in the sampled segments of the left atrium or atrial appendage. 3. Moderate mitral regurgitation Procedure: A 2D transesophageal echocardiogram with spectral and color flow Doppler was performed. The patient was brought to the cardiac catheterization lab in a fasting state. Sedation was managed by anesthesiologist; see anesthesiology notes for details. Left Ventricle: The left ventricle is grossly normal size. The left ventricular ejection fraction is normal. Atria: No evidence for thrombus in the sampled segments of the left atrium or left atrial appendage. Mitral Valve: Leaflets appear thin with normal excursion. There is moderate mitral regurgitation. Aortic Valve: The aortic valve is trileaflet. The aortic valve opens well. No aortic regurgitation is present. Tricuspid Valve: The tricuspid valve leaflets are thin and pliable. There is mild tricuspid regurgitation. Pulmonic Valve: The pulmonic valve is not well seen, but is grossly normal. Reading Physician:06:06 PM
== END 2017-03-31 23:59 | disposition home or self-care (01) ==
LOC: SOUO 00:37
PROVIDERS: ATTEND Internal Medicine Cardiovascular Disease
DX: I48.1 Persistent atrial fibrillation (principal); Z53.09 Procedure and treatment not carried out because of other contraindication; K25.9 Gastric ulcer, unspecified as acute or chronic, without hemorrhage or perforation; I49.5 Sick sinus syndrome; Z95.0 Presence of cardiac pacemaker; Z79.01 Long term (current) use of anticoagulants; Z86.73 Personal history of transient ischemic attack (TIA), and cerebral infarction without residual deficits
CPT/HCPCS: 36415; 80048; 85025; 85610; 86677; 93005; C8925; J1100; J2250; J2370; J2405; J2710; J3010; J7030

== ENCOUNTER 2017-03-31 09:09 | Day surgery (SDC) | payer MEDICARE ==
--- NOTE | 2017-03-31 09:57 | PCM.ENDEGD ---
EGD Date of Service: March 31, 2017 Physician Edvin Arana MD Pre Procedure Diagnosis: unable to pass ARSEN Post Procedure Dx & Findings: gastric ulcer Procedure Esophagogastroduodenoscopy PROCEDURE IN DETAIL: The patient was intubated for ARSEN. Bite block was placed. Scope lubricated, placed in posterior pharynx, passed through the cricopharyngeus and esophagus, slowly advanced the entire length of the gastric pouch, pylorus was identified, scope passed through the pylorus and descending portion of duodenum, withdrawn in the antrum, retroflexed upon itself for view of fundus and cardia. Scope was then withdrawn through the oropharynx. FINDINGS: Hypopharynx normal except there was some fresh blood probably from trauma earlier. This was suctioned. Esophagus line with normal-appearing mucosa with normal appearing Z-line located 40 cm from the incisors. The fundus, cardia, body, and antrum were lined with hyperemic mucosa with pylorus midline in the antral channel. There was 1.5 cm clean based ulcer in antrum. No biopsy done due to cumardin. Several small erosions were noted as well. The bulb and descending portion of duodenum was normal including normal circular folds. IMPRESSION Gastric ulcer and erosions with clean base No obstruction of the esophagus Recommendation Check for H pylori Start protonix 40 mg po daily Repeat EGD in 8 weeks to check for healing since I could not biopsy. Presedation Assessment Risks and Benefits Informed consent was obtained from the patient after all risks and benefits including but not limited to drug reaction, infection, pain, bleeding, perforation, as well as alternatives were discussed. Patient monitoring Continuous pulse oximetry, cardiac monitoring, blood pressure monitoring, IV access, and oxygen at 2L per nasal cannula. Complications There were no periprocedural complications identified. Post Procedure Plan Post Procedure Recommendations 1. Restrict activities today. 2. Resume normal activities in the morning. 3. Resume medications. 4. GERD behavioral modification: - Avoid fatty, acidic, spicy, large meals - Do not lie down after meals - Do not eat or drink anything for at least 2 1/2 hours before going to bed at night - Discontinue tobacco and alcohol - Decrease or avoid caffeine - Avoid chocolate and mints - Decrease weight - Avoid aspirin and non steroidal anti-inflammatory agents (NSAID) such as Aleve, Advil, Mobic, Naproxen, Ibuprofen, etc 5. Add proton pump inhibitor. Take 30 minutes before 1st meal of the day. 6. Patient informed of normal post procedure side effects as bloating, drowsiness, blood streaking in the stool 7. If gastric biopsy reveal H.pylori, continue with appropriate treatment 8. If small bowel biopsy reveals celiac, continue with appropriate treatment 9. Please don't hesitate to call me with any questions Edvin Arana MD March 31, 2017 09:57
== END 2017-03-31 23:59 | disposition home or self-care (01) ==
LOC: END 09:09
PROVIDERS: ATTEND Internal Medicine
DX: K25.9 Gastric ulcer, unspecified as acute or chronic, without hemorrhage or perforation (principal)

== ENCOUNTER 2017-05-13 13:04 | Day surgery (SDC) | payer MEDICARE ==
[~2017-05-13] VITALS: Ht 180.3 cm; Wt 70.3 kg
[~2017-05-13 13:04] MED LIST changes: +Lactated Ringer's 1,000 ML IV ONE
[2017-05-13] MEDS ORDERED: Propofol 10,000 mCg/mL 20 mL Inj ONE (13:05)
[2017-05-13 13:25] VITALS: BP 138/80; PULSE 66; RESP 16; O2SAT 99
[2017-05-13 14:15] VITALS: BP 104/71; PULSE 79; RESP 16; O2SAT 99
--- NOTE | 2017-05-13 14:16 | PCM.ENDEGD ---
EGD Date of Service: May 13, 2017 Physician Edvin Arana MD Pre Procedure Diagnosis: Peptic ulcer disease Post Procedure Dx & Findings: Gastritis duodenal inflammation Procedure Esophagogastroduodenoscopy PROCEDURE IN DETAIL: Patient is taking Coumadin. Therefore was not able to take any biopsies. After proper sedation, Olympus video endoscope was inserted into patient's mouth and esophagus was successfully intubated. Scope introduced esophagus. Esophagus showed normal shiny whitish mucosa consistent with squamous cell component. Z line was intact at 40 cm from the incisors. Scope further advanced to the stomach. Stomach overall showed normal mucosa with normal rugae folds. However along the antrum, there is some evidence of irritation and atrophy consistent with gastritis. Cardia fundus body antrum pylorus were all visualized. Retroflexion was done. Stomach was easily inflated and deflatable using air. Scope further events to the distal duodenum. Duodenal bulb showed one fold that was reddish edematous and irritated. In the middle there was a mucosal defect. This is most likely a healing duodenal ulcer. Duodenum revealed normal villous structures with normal appearing folds without any mass ulcer erosion. Impression Gastritis Duodenitis Recommendation Continue PPI Presedation Assessment Risks and Benefits Informed consent was obtained from the patient after all risks and benefits including but not limited to drug reaction, infection, pain, bleeding, perforation, as well as alternatives were discussed. Patient monitoring Continuous pulse oximetry, cardiac monitoring, blood pressure monitoring, IV access, and oxygen at 2L per nasal cannula. Complications There were no periprocedural complications identified. Post Procedure Plan Post Procedure Recommendations 1. Restrict activities today. 2. Resume normal activities in the morning. 3. Resume medications. 4. GERD behavioral modification: - Avoid fatty, acidic, spicy, large meals - Do not lie down after meals - Do not eat or drink anything for at least 2 1/2 hours before going to bed at night - Discontinue tobacco and alcohol - Decrease or avoid caffeine - Avoid chocolate and mints - Decrease weight - Avoid aspirin and non steroidal anti-inflammatory agents (NSAID) such as Aleve, Advil, Mobic, Naproxen, Ibuprofen, etc 5. Add proton pump inhibitor. Take 30 minutes before 1st meal of the day. 6. Patient informed of normal post procedure side effects as bloating, drowsiness, blood streaking in the stool 7. If gastric biopsy reveal H.pylori, continue with appropriate treatment 8. If small bowel biopsy reveals celiac, continue with appropriate treatment 9. Please don't hesitate to call me with any questions Edvin Arana MD May 13, 2017 14:16
[2017-05-13 14:25] VITALS: BP 115/69; PULSE 70; RESP 16; O2SAT 100
[2017-05-13 14:35] VITALS: BP 120/79; PULSE 65; RESP 16; O2SAT 99
--- NOTE | 2017-05-13 18:14 | PCM.HPANE ---
Patient Data Date of Service: May 13, 2017 (0700) Surgeon Admitting Provider: Attending Provider:Edvin Arana MD Primary Care Physician:Ezio Cox MD Other Provider:Anderson Culp Anesthesia Reason for Visit Peptic Ulcer Disease Ht/WT & BMI Height (Feet): 5 Height (Inches): 11 Weight (Kilograms): 70.31 Body Mass Index 21.00 Allergies Coded Allergies: flecainide (Verified Allergy, Intermediate, 03/31/17) Past Anesthesia History Anesthesia History: Denies:: Anesthesia Reactions, Fam Anesthesia Reaction, Fam Malignant Hypertherm, Malignant Hyperthermia Diabetes History Hx Diabetes?: No MRSA MRSA: No Medications Blood Thinner: Coumadin Last Dose Blood Thinner: May 13, 2017 Home Meds Incl Beta Candice: Yes Date Beta Candice Taken: May 13, 2017 Time Beta Candice Taken: 0700 Reported Medications Betamethasone Valerate (Betamethasone Valerate 0.1% Ointment)15 Gm Oint...g.1 Appl TOP BID/PRN #1 TUBE Ref 0 03/30/17 Propranolol ER 80 Mg Cap.sa.24h80 Mg PO DAILY 03/30/17 Warfarin Sodium 3 Mg [id number] Mg PO DAILY 30 Days Ref 0 01/12/17 Primidone 50 Mg [id number] Mg PO DAILY 30 Days 01/14/16 Cholecalciferol (Vitamin D3) (Vitamin D3)2,000 Unit Tablet2,000 Unit PO DAILY 08/08/15 Ascorbic Acid (Vitamin C)1,000 Mg Tab.chew2,000 Mg PO DAILY Ref 0 08/08/15 Multivitamin (Multi Vitamin Daily)1 Each Tablet1 Each PO DAILY 30 Days Ref 0 08/08/15 History History of ENT Problems?: Yes HEENT History: Positive for:: Cataracts (Cararact surgery both eyes) Denture Type: None Teeth Condition: Within Normal Limits Hx of Heart Problems?: Yes Cardiovascular History: Positive for:: Atrial Fibrillation Cardiac Surgery (pacemaker implant 01/15) Irregular Heartbeat (SVT ablation, a.fib) Pacemaker Denies:: Chest Pain Congestive Heart Failure Edema Heart Murmur Hypertension Hx of Respiratory Problem?: No Respiratory History: Positive for:: Pneumonia (50 years ago) Hx Neurologic Problems?: Yes Neurological History: Positive for:: CVA (TIA) Denies:: Parkinson's Disease Hx of GI Problems?: Yes Hx of Problems?: No Male Hx: Denies:: Prostate Problems Scrotal Mass Testicular Surgery Hx Musculoskeletal Problems?: No Hx of Psycho/Social Problems?: No Hx Surgeries?: Yes (ABLATION, PACEMAKER) Hx Any Other Health Problems?: No Other History: Positive for:: Hospitalization (50years ago for pneumonia) Denies:: Cancer Thyroid Disease History Blood Transfusions: Denies:: Blood Transfuse Reaction Blood Transfusions Hx Diabetes: No Hx Alcohol Use: Yes (DAILY)Hx Substance Use: No Smoking Status: Former Smoker Have You Smoked inLast 12 mo: No Stop/Bang Treated for Sleep Apnea?: No Do You Have a CPAP Machine?: No S-Snoring: Do You Snore Loudly: No T-Tired: feel tired, fatigued: No O-Obsered: Observed not breath: No P-Blood Pressure: treated: Yes B- Body Mass Index > 35 kg/m2: No A- Age over 50: Yes N- Neck Large Circumference: No G- Gender Male: No LANIE Total Score: 2 Risk Assessment Category Category 1A: Patient has history of documented sleep apnea, and HAS NOT received any narcotic, sedative or anesthesia administration during this stay. Category 1B: Patient has history of documented sleep apnea, and HAS received any narcotic , sedative or anesthesia administration during this stay Category 2: Patient has SUSPECTED Obstructive Sleep Apnea, and HAS received any narcotic , sedative or anesthesia administration during this stay. Category 3: Patient has SUSPECTED Obstructive Sleep Apnea and HAS NOT received narcotic, sedative or anesthesia administration during this stay. Category 4: Outpatient in Procedural Areas with known sleep apnea or who screen positive for High Risk via the STOP/BANG questionnaire. Exam Exam Vital Signs Vital Signs Date Time Temp Pulse Resp B/P Pulse Ox O2 Delivery O2 Flow Rate FiO2 05/13/17 14:35 65 16 120/79 99 Room Air 05/13/17 14:25 70 16 115/69 100 Room Air 05/13/17 14:15 79 16 104/71 99 Room Air 05/13/17 13:25 66 16 138/80 99 Room Air General Appearance: Alert, Oriented X3, Cooperative, No Acute Distress HEENT/AIRWAY: MP 2 Lungs: Clear to Auscultation Heart: Exam Unremarkable Meds/Labs/Diagnostics Admission Meds Current Medications Lactated Ringer's (Lr) 1,000 ml @ 10 mls/hr Q24H ONCE IV Last administered on 05/13/17t 14:09; Start 05/13/17 at 06:00; Stop 05/14/17 at 05:59 Plan Impression Patient chart reviewed, patient interviewed and anesthestic plan with risks, benefits, and alternatives discussed, and informed consent obtained. ASA Physical Status: ASA2 Mod Systemic Disease Anesthetic Plan: MAC Bene/Risks/Altern/Consents: Yes HP Complete Prior to Induction: Yes Neil Wagner MD May 13, 2017 18:14
== END 2017-05-13 23:59 | disposition home or self-care (01) ==
LOC: END 13:04
PROVIDERS: ATTEND Internal Medicine
DX: K29.70 Gastritis, unspecified, without bleeding (principal); K29.80 Duodenitis without bleeding; K27.9 Peptic ulcer, site unspecified, unspecified as acute or chronic, without hemorrhage or perforation; I48.0 Paroxysmal atrial fibrillation; I47.1 Supraventricular tachycardia; Z95.0 Presence of cardiac pacemaker; Z79.01 Long term (current) use of anticoagulants
CPT/HCPCS: 43235; J7120